=== PATIENT | female | born 1955 | race Two or more races ===

== ENCOUNTER 2017-01-29 08:07 | Emergency (ER) | payer MEDICARE, OTHER ==
[~2017-01-29] VITALS: Ht 170.2 cm; Wt 86.4 kg
[2017-01-29] MEDS ORDERED: ATOR10TA84 PO (08:10)
[2017-01-29] MEDS ORDERED: VENL50TA44 PO (08:10)
[2017-01-29] MEDS ORDERED: AMLO-512 PO (08:10)
[2017-01-29 08:33] LABS: BASOPHILS % (AUTO) 0.3 % (0.0-2.0); EOSINOPHILS % (AUTO) 2.4 % (1.0-6.0); HEMATOCRIT 43.6 % (36-46); HEMOGLOBIN 14.1 g/dL (12.0-16.0); LYMPHOCYTES # (AUTO) 2.4 K/uL (1.0-4.8); LYMPHOCYTES % (AUTO) 25.6 % (22.0-44.0); MEAN CORPUSCULAR HEMOGLOBIN 30.8 pg (26.0-34.0); MEAN CORPUSCULAR HGB CONC 32.4 G/dL (31.0-37.0); MEAN CORPUSCULAR VOLUME 95 fL (80-100); MONOCYTES # (AUTO) 0.4 K/uL (0.1-1.0); MONOCYTES % (AUTO) 4.6 % (2.0-9.0); NEUTROPHILS # (AUTO) 6.2 K/uL (1.8-7.7); NEUTROPHILS % (AUTO) 67.1 % (40.0-70.0); PLATELET COUNT (AUTO) 379 K/uL (150-450); RED BLOOD CELL COUNT(AUTO) 4.59 MIL/uL (4.00-5.20); RED CELL DISTRIBUTION WIDTH 13.8 % (11.5-14.5); WHITE BLOOD COUNT (AUTO) 9.3 K/uL (4.5-11.0)
[2017-01-29 08:45] LABS: ANION GAP 10 mmol/L (8-16); CALCIUM, TOTAL 8.8 mg/dL (8.8-10.5); CARBON DIOXIDE 26 mmol/L (22-29); CHLORIDE 104 mmol/L (98-107); CREATININE 0.84 mg/dL (0.60-1.30); GLOMERULAR FILTR. RATE CALC > 60 mL/min (>60); POTASSIUM 3.3 mmol/L (3.5-5.1); SODIUM SERUM 140 mmol/L (136-145); UREA NITROGEN, BLOOD 9 mg/dL (7-18)
[2017-01-29 08:47] LABS: APPEARANCE,URINE CLOUDY (CLEAR); GLUCOSE, URINE (UA) NEGATIVE (NEGATIVE); KETONES,URINE NEGATIVE (NEGATIVE); LEUKOCYTE ESTERASE ,URINE SMALL (NEGATIVE); OCCULT BLOOD,URINE SMALL (NEGATIVE); PH,URINE 6.5 (5.0-8.0); PROTEIN,URINE NEGATIVE (NEGATIVE)
[2017-01-29 08:48] LABS: ADD UA MICROSCOPIC YES
[2017-01-29 09:07] LABS: RBC,URINE 0-2 /HPF (0-2)
[2017-01-29 09:08] LABS: SQUAMOUS EPITHELIAL CELL,UR Many /LPF (None Seen)
[2017-01-29 09:09] LABS: ALANINE AMINOTRANSFERASE 21 U/L (12-78); ALBUMIN 3.6 g/dL (3.4-5.0); ASPARTATE AMINOTRANSFERASE 14 U/L (15-37); BILIRUBIN,TOTAL 0.4 mg/dL (0.1-1.0); TOTAL PROTEIN, SERUM 7.7 g/dL (6.4-8.2)
[2017-01-29] MEDS ORDERED: HYDROmorphone 2 MG/ML SYRINGE IVP ONE (10:30)
[2017-01-29] MEDS ORDERED: ONDANSETRON HCL 4 MG/2 ML VIAL IVP ONE (10:30)
[2017-01-29] MEDS ORDERED: BARIUM SULFATE 0.1% SUSPENSION 450 ML BOTTLE PO ONE (10:30)
[2017-01-29 11:42] VITALS: BP 145/96
[2017-01-29] MEDS ORDERED: IOVERSOL 350 MG/ML 100 ML VIAL ONE (12:25)
[2017-01-29] MEDS ORDERED: LEVOFLOXACIN 500 MG TABLET PO ONE (14:00)
== END 2017-01-29 14:12 | disposition home or self-care (01) ==
LOC: EMS 08:10
DX: N39.0 Urinary tract infection, site not specified (principal); E78.00 Pure hypercholesterolemia, unspecified; I10 Essential (primary) hypertension; F17.210 Nicotine dependence, cigarettes, uncomplicated
CPT/HCPCS: 36415; 74177; 80053; 81001; 83690; 84484; 85025; 87086; 93005; 96374; 96375; 99285; J1170; J2405; Q9967

== ENCOUNTER 2017-05-14 19:29 | Emergency (ER) | payer MEDICARE, OTHER ==
[~2017-05-14] VITALS: Ht 170.2 cm; Wt 87.7 kg
[~2017-05-14 19:29] MED LIST: AMLO-512 PO; ATOR10TA84 PO; VENL50TA44 PO
[2017-05-14] MEDS ORDERED: OxyCODONE HCL/ACETAMINOPHEN 5-325 MG TABLET PO ONE (22:45)
[2017-05-14 23:32] VITALS: BP 129/77
== END 2017-05-14 23:34 | disposition home or self-care (01) ==
LOC: EMS 19:31
DX: S30.0XXA Contusion of lower back and pelvis, initial encounter (principal); F32.9 Major depressive disorder, single episode, unspecified; F17.210 Nicotine dependence, cigarettes, uncomplicated; E78.00 Pure hypercholesterolemia, unspecified; I10 Essential (primary) hypertension; W01.0XXA Fall on same level from slipping, tripping and stumbling without subsequent striking against object, initial encounter; Y93.89 Activity, other specified; Y92.89 Other specified places as the place of occurrence of the external cause; Y99.8 Other external cause status
CPT/HCPCS: 72100; 99284; 99406